=== PATIENT | female | born 1930 | race Caucasian/White ===

== ENCOUNTER 2016-11-19 21:57 | Emergency (ER) | payer OTHER ==
[~2016-11-19] VITALS: Ht 162.6 cm; Wt 83.9 kg
[~2016-11-19 21:57] MED LIST: ASPIRIN81 M4 PO; CIPRO500 M1 PO; LISINOPRIL-HCT1 EAC1 PO; MORPHINE SULFAT30 M3 PO; NEURONTIN800 M2 PO; OMEPRAZOLE40 M1 PO; ONGLYZA5 M1 PO; PRESERVISION A1 EAC1 PO; SIMVASTATIN40 M1 PO; STOOL SOFTENER100 M3 PO; VALACYCLOVIR1000 MG PO; VITAMIN D3400 UNI1 PO
--- NOTE | 2016-11-19 21:59 | ED AMS/SEIZURE/WEAK/DIZZY ---
History of Present Illness General Chief Complaint: Dizziness Stated Complaint: DIZZINESS Source: patient Exam Limitations: no limitations Allergies Coded Allergies: NO KNOWN ALLERGIES (09/27/12) Reconcile Medications Aspirin (Aspirin*) 81 MG TAB.CHEW 1 TAB PO DAILY HEART HEALTH (Reported) Ciprofloxacin HCl (Cipro) 500 MG TABLET 1 TAB PO BID intestinal infection Docusate Sodium (Stool Softener) 100 MG CAPSULE 1 CAP PO BID STOOL SOFTENER ( Reported) Gabapentin (Neurontin) 800 MG TABLET 1 TAB PO TID UNKNOWN (Reported) Lisinopril/Hydrochlorothiazide (Lisinopril-Hctz 20-25 MG Tab) 1 EACH TABLET 1 TAB PO DAILY HEART (Reported) Metronidazole (Flagyl) 500 MG TABLET 1 TAB PO Q6 DIVERTICULITIS Morphine Sulfate (Morphine Sulfate ER) 30 MG TABLET.ER 1 TAB PO BID PAIN ( Reported) Multivit-Min/FA/Lycopen/Lutein (Centrum Silver Tablet) 0.4 MG-300 MCG-250 MCG TABLET 1 TAB PO DAILY SUPPLEMENT (Reported) Omeprazole 40 MG CAPSULE.DR 1 CAP PO BID GI (Reported) Ondansetron (Zofran Odt) 4 MG TAB.RAPDIS 1 TAB SL Q6P PRN NAUSEA/VOMITING Saxagliptin (Onglyza) 5 MG TABLET 1 TAB PO DAILY DIABETES (Reported) Simvastatin (Simvastatin*) 40 MG TABLET 1 TAB PO QPM CHOLESTEROL (Reported) Vit C/E/Zn/Coppr/Lutein/Zeaxan (Preservision Areds 2 Softgel) 1 EACH CAPSULE 1 TAB PO BID EYE (Reported) Triage Nurses Notes Reviewed? yes Onset: Abrupt Duration: hour(s): (3) Timing: multiple episodes today Injury Environment: home Severity: moderate No Modifying Factors: none Associated Symptoms: pain, nausea, diarrhea HPI: This is an 86-year-old female presents to the hospital via EMS from home for chief complaint of nausea, crampy abdominal pain which is now resolved and 4 episodes of diarrhea. She states symptoms all started after she warmed up a frozen apple pastry. No fever or chills but she was diaphoretic. Denies any chest pain or shortness of breath. No symptoms prior to doing this appetite. She denies any blood in her stool. (MATT MORALES,SOURAV) Vital Signs & Intake/Output Vital Signs & Intake/Output Vital Signs Date Time Temp Pulse Resp B/P Pulse O2 O2 Flow FiO2 Ox Delivery Rate 11/20 1124 66 18 138/63 94 Room Air 11/20 0743 66 18 126/59 96 Room Air 11/20 0402 97.9 80 20 128/58 96 Room Air 11/20 0130 83 18 135/69 96 11/19 2341 96.7 80 20 137/62 96 Room Air 11/19 2206 96.8 79 20 130/62 92 Room Air ED Intake and Output 11/20 0000 11/19 1200 Intake Total 0 Output Total Balance 0 Intake, Oral 0 Patient 185 lb Weight Past History Medical History Any Pertinent Medical History? 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 No (SOURAV LUU MD) Review of Systems Review of Systems Constitutional: Reports: diaphoresis. Denies: chills, fever. EENTM: Reports: no symptoms. Respiratory: Denies: cough, short of breath. Cardiovascular: Denies: chest pain, palpitations. GI: Reports: abdominal pain, diarrhea, nausea. Denies: vomiting. Genitourinary: Reports: no symptoms. Musculoskeletal: Reports: no symptoms. Skin: Reports: no symptoms. Neurological/Psychological: Reports: no symptoms. Hematologic/Endocrine: Denies: bruising, bleeding, polyuria, polydipsia. Immunologic/Allergic: Denies: splenectomy. All Other Systems: Reviewed and Negative (SOURAV LUU MD) Physical Exam Physical Exam General Appearance: well developed/nourished, alert, awake, anxious, moderate distress Head: atraumatic, normal appearance Eyes: Bilateral: normal appearance, PERRL, EOMI. Ears, Nose, Throat: normal pharynx, hearing grossly normal Neck: normal inspection, supple, full range of motion Respiratory: normal breath sounds, chest non-tender, no respiratory distress Cardiovascular: regular rate/rhythm Gastrointestinal: normal bowel sounds, soft, tenderness (epigastric, right upper quadra) Extremities: normal range of motion Neurologic/Psych: awake, alert, oriented x 3 Skin: intact, normal color, warm/dry Core Measures ACS in differential dx? No CVA/TIA Diagnosis: No Severe Sepsis Present: No Septic Shock Present: No (MATT MORALES,SOURAV) Progress Differential Diagnosis: PUD, GERD, GASTRITIS, GASTROENTERITIS, CHOLECYSTITIS, FOOD POISONING Diagnostic Imaging: Viewed by Me: CT Scan. Discussed w/RAD: CT Scan. Radiology Impression: PATIENT: YVES HURT PRESENT AGE: 86 PATIENT ACCOUNT NO: [id number] : 30 LOCATION: ER ORDERING PHYSICIAN: SOURAV LUU MD SERVICE DATE: 11/19/16 EXAM TYPE: CAT - CT ABD WO IV CONTRAST EXAMINATION: CT ABDOMEN AND PELVIS without CONTRAST CLINICAL INFORMATION: Right upper quadrant pain. COMPARISON: None TECHNIQUE: Helical CT scan of abdomen and pelvis. IV contrast: None Oral contrast: None Reconstruction : Coronal and sagittal reformatted images performed at CT scanner by the technologist. FINDINGS: LUNG BASES: Peribronchial cuffing with parenchymal scarring at lung bases. No infiltrate or pleural effusion. LIVER, GALLBLADDER, AND BILIARY TREE: The liver is normal in size, shape, and attenuation. No focal hepatic lesion or biliary ductal dilatation is present. The gallbladder is unremarkable with no evidence of radiopaque gallstones, gallbladder wall thickening, or obvious pericholecystic inflammatory changes. PANCREAS: No acute change of the pancreas. No mass. No pancreatic duct dilatation. SPLEEN: Spleen normal in size and contour. No focal lesion. ADRENAL GLANDS: Adrenal glands are normal in size. No focal mass. KIDNEYS AND URETERS: Right kidney is absent. Left kidney is normal. No renal or ureteral calculus. No hydronephrosis. BLADDER: Unremarkable. GASTROINTESTINAL TRACT: The small and large bowel are unremarkable. The appendix is not identified. No inflammation the mesentery. MESENTERY: Mild nonspecific hazy opacity in the mid mesentery. No focal inflammation. No free fluid. No free air. ABDOMINAL WALL: No significant hernia is appreciated. LYMPH NODES: Normal. VASCULAR: Atherosclerotic vascular wall calcifications of aorta and iliac arteries. PELVIC VISCERA: Uterus is absent. Calcified smooth bordered round 7 cm soft tissue lesion in the right side of the pelvis. Question of CHAIR CAR ATTENDANT or mesenteric origin. No inflammation around the lesion. OSSEOUS STRUCTURES: Multilevel degenerative change of the spine with disc height narrowing and endplate spurs and facet joint arthrosis. IMPRESSION: 1. No acute abnormality CT abdomen or the pelvis. 2. Right kidney absent. 3. 7 cm calcified lesion right side of pelvis of CHAIR CAR ATTENDANT or mesenteric origin. No inflammation around the lesion. Status post hysterectomy. DICTATED BY: MILDRED COLEMAN MD DATE/TIME DICTATED:11/20/16136 PARTS DEPARTMENT MANAGER:IVELISSE DATE/TIME TRANSCRIBED:136 CONFIDENTIAL, DO NOT COPY WITHOUT APPROPRIATE AUTHORIZATION. < Electronically signed in Other Vendor System> SIGNED BY: MILDRED COLEMAN MD 204 Initial ED EKG: NSR, RBBB Hand-Off Endorsed To: KATHERINE MORALES,SHAHBAZ Polanco Endorsed Time: 0700 Pending: other (reeval) (MATT MORALES,SOURAV) Plan of Care: Orders Procedure Date/time Status Regular Diet 11/20 B Active CULTURE,STOOL 11/19 2336 Active OVA AND PARASITE ANTIGENS 11/19 2336 Active C.DIFFICILE 11/19 2336 Active URINALYSIS 11/19 2244 Active TROPONIN LEVEL 11/19 2207 Complete PARTIAL THROMBOPLASTIN TIME 11/19 2207 Complete PROTHROMBIN TIME 11/19 2207 Complete COMPREHENSIVE METABOLIC PANEL 11/19 2207 Complete CBC WITHOUT DIFFERENTIAL 11/19 2207 Complete EKG 11/19 2207 Active Laboratory Tests 11/19/16 2230: Anion Gap 9, Estimated GFR 47 L, BUN/Creatinine Ratio 30.9 H, Glucose 170 H, Calcium 8.8, Total Bilirubin 0.5, AST 23, ALT 29, Alkaline Phosphatase 98, Troponin I 0.02, Total Protein 6.4, Albumin 3.5, Globulin 2.9, Albumin/Globulin Ratio 1.2, PT 11.2, INR 1.07, APTT 29, CBC w Diff NO MAN DIFF REQ, RBC 4.06 L, MCV 91.7, MCH 29.9, RDW 15.8 H, MPV 9.2, Gran % 81.2 H, Lymphocytes % 10.6 L, Monocytes % 5.3, Eosinophils % 1.7, Basophils % 1.2, Absolute Granulocytes 11.9 H, Absolute Lymphocytes 1.5, Absolute Monocytes 0.8 H, Absolute Eosinophils 0.2 , Absolute Basophils 0.2, PUBS MCHC 32.6 L Microbiology 11/19 2353 STOOL: Clostridium difficile Toxin A & B - RES 11/19 2353 STOOL: Stool Culture - RES 11/19 2336 STOOL: Cryptosporidium Antigen - ORD 11/19 2336 STOOL: Giardia Antigen (SHAYAN) - ORD Patient feeling much better after IV fluids, Bentyl and Zofran. White blood cell count is 14,000. Still with some discomfort. CT scan abdomen ordered. CT scan is negative for acute intra-abdominal process. There is a mass identified possibly CHAIR CAR ATTENDANT origin. Currently she feels better. We will keep her in the emergency department and I give her a clear liquid diet. Patient is able to tolerate clear liquids will discharge her with her son in the morning. (MATT MORALES,SOURAV) Comments: 11/20/2016 7:26:08 AM patient signed out to me by Dr. Luu. During signed out the patient had a small amount of blood, reddish in color, per rectum. She has white blood cell count of 14,000 and a CHAIR CAR ATTENDANT versus mesenteric mass noted on CAT scan. She agrees to admission to pursue these issues. 11/20/2016 8:42:17 AM patient's case discussed with Dr. Johnson who feels that the patient may not necessarily need to be admitted under the circumstances. He feels that if she continues to have blood per rectum over the next 2 hours or so that she should be admitted otherwise she can be worked up as an outpatient. 11/20/2016 11:04:50 AM patient has had no additional episodes of diarrhea or rectal bleeding. (KATHERINE MORALES,SHAHBAZ Polanco) Departure Departure Condition: Stable Referrals: ALON SMITH MD (PCP/Family) Departure Forms: Customer Survey General Discharge Information (SOURAV LUU MD) Departure Disposition: HOME OR SELF CARE Clinical Impression Primary Impression: Colitis Secondary Impressions: Pelvic mass Additional Instructions: Take the nausea medication if needed. Antibiotics as prescribed for the possibility of an intestinal bacterial infection. [place] diet today and advance as tolerated. Follow up with the GI specialist listed for reevaluation as soon as possible. Follow up with your primary care doctor as soon as possible because you have a mass in the pelvis that will need further evaluation. Return if any concerns or sudden worsening. Please note that there might be incidental findings in your evaluation that are unrelated to the current emergency department visit. Please notify your primary care doctor about this emergency department visit in order to obtain and review all of the testing performed so that these incidental findings can be monitored as needed. If you had an x-ray performed, please understand that some fractures may not be seen on the initial set of x-rays. If your symptoms persist you might need a repeat set of x-rays to check for such a fracture. If you had a laceration evaluated, please understand that foreign bodies such as glass or wood may not be visible to the naked eye or on plain x-rays. If the wound becomes red, swollen, increasingly more painful or if there is any drainage from the wound, please have it reevaluated by a physician for the possibility of a retained foreign body. Thank you for choosing the [facility] Emergency Department for your care. It was a pleasure to serve you today. Shahbaz Alcantara M.D. [facility] Prescriptions: Current Visit Scripts Ondansetron (Zofran Odt) 1 TAB SL Q6P PRN NAUSEA/VOMITING #10 TAB Ciprofloxacin HCl (Cipro) 1 TAB PO BID #14 TAB Metronidazole (Flagyl) 1 TAB PO Q6 #28 TAB (SHAHBAZ ALCANTARA MD) #14 TAB Metronidazole (Flagyl) 1 TAB PO Q6 #28 TAB (SHAHBAZ ALCANTARA MD)
[2016-11-19 22:44] LABS: ABSOLUTE BASOPHIL COUNT 0.2 /CUMM (0.0-0.2); ABSOLUTE EOSINOPHIL COUNT 0.2 /CUMM (0.0-0.7); ABSOLUTE GRANULOCYTE CT 11.9 /CUMM (1.4-6.5); ABSOLUTE LYMPH COUNT 1.5 /CUMM (1.2-3.4); ABSOLUTE MONOCYTE COUNT 0.8 /CUMM (0.10-0.60); BASOPHIL % 1.2 % (0.0-2.0); EOSINOPHIL % 1.7 % (0-5); GRANULOCYTE % 81.2 % (42.2-75.2); HEMATOCRIT 37.2 % (37-47); MEAN CORPUSCULAR HGB 29.9 PG (27.0-31.0); MEAN CORPUSCULAR HGB CONC 32.6 G/DL (33.0-37.0); MEAN CORPUSCULAR VOLUME 91.7 FL (81.0-99.0); MEAN PLATELET VOLUME 9.2 FL (7.4-10.4); PLATELET COUNT 167 /CUMM (130-400); RBC DISTRIBUTION WIDTH 15.8 % (11.5-14.5); RED BLOOD CELL CT 4.06 /CUMM (4.20-5.40)
[2016-11-19 22:56] LABS: PT 11.2 SEC (9.4-12.5); PTT 29 SEC (25-37)
[2016-11-19 23:41] LABS: WHITE BLOOD CELL COUNT 14.6 /CUMM (4.8-10.8)
--- NOTE | 2016-11-20 02:05 | CT SCAN REPORT ---
EXAMINATION: CT ABDOMEN AND PELVIS without CONTRAST CLINICAL INFORMATION: Right upper quadrant pain. COMPARISON: None TECHNIQUE: Helical CT scan of abdomen and pelvis. IV contrast: None Oral contrast: None Reconstruction: Coronal and sagittal reformatted images performed at CT scanner by the technologist. FINDINGS: LUNG BASES: Peribronchial cuffing with parenchymal scarring at lung bases. No infiltrate or pleural effusion. LIVER, GALLBLADDER, AND BILIARY TREE: The liver is normal in size, shape, and attenuation. No focal hepatic lesion or biliary ductal dilatation is present. The gallbladder is unremarkable with no evidence of radiopaque gallstones, gallbladder wall thickening, or obvious pericholecystic inflammatory changes. PANCREAS: No acute change of the pancreas. No mass. No pancreatic duct dilatation. SPLEEN: Spleen normal in size and contour. No focal lesion. ADRENAL GLANDS: Adrenal glands are normal in size. No focal mass. KIDNEYS AND URETERS: Right kidney is absent. Left kidney is normal. No renal or ureteral calculus. No hydronephrosis. BLADDER: Unremarkable. GASTROINTESTINAL TRACT: The small and large bowel are unremarkable. The appendix is not identified. No inflammation the mesentery. MESENTERY: Mild nonspecific hazy opacity in the mid mesentery. No focal inflammation. No free fluid. No free air. ABDOMINAL WALL: No significant hernia is appreciated. LYMPH NODES: Normal. VASCULAR: Atherosclerotic vascular wall calcifications of aorta and iliac arteries. PELVIC VISCERA: Uterus is absent. Calcified smooth bordered round 7 cm soft tissue lesion in the right side of the pelvis. Question of TILTING HEAD BAND SAWYER or mesenteric origin. No inflammation around the lesion. OSSEOUS STRUCTURES: Multilevel degenerative change of the spine with disc height narrowing and endplate spurs and facet joint arthrosis. IMPRESSION: 1. No acute abnormality CT abdomen or the pelvis. 2. Right kidney absent. 3. 7 cm calcified lesion right side of pelvis of TILTING HEAD BAND SAWYER or mesenteric origin. No inflammation around the lesion. Status post hysterectomy.
[2016-11-20] MEDS ORDERED: ZOFRAN ODT4 M1 PO (06:59)
[2016-11-20] MEDS ORDERED: CENTRUM SILVER1 EAC3 PO (08:11)
[2016-11-20] MEDS ORDERED: CIPRO500 M1 PO (11:08)
[2016-11-20] MEDS ORDERED: FLAGYL500 MG PO (11:08)
[2016-11-20] MEDS ORDERED: ZOFRAN ODT4 M1 SL (11:08)
[2016-11-20 11:24] VITALS: BP 138/63
== END 2016-11-20 11:00 ==
LOC: ERH 21:57
PROVIDERS: Emergency Medicine
DX: K52.9 Noninfective gastroenteritis and colitis, unspecified (principal); R19.09 Other intra-abdominal and pelvic swelling, mass and lump
CPT/HCPCS: 74176; 87045; 87328; 87329; 93005; 93010; 96374; 96375; J0131; J2405